=== PATIENT | female | born 1945 | race Caucasian/White ===

== ENCOUNTER → 2016-11-26 | Outpatient (CLI) | payer MEDICARE, OTHER ==
[~2016-11-26] MED LIST: ALPRAZOLAM0.5 MG PO; ASPIR 8181 MG PO; B COMPLEX1 EACH PO; CLOPIDOGREL75 MG PO; CRESTOR40 MG PO; DIOVAN 80 MG TA80 MG PO; ELIQUIS5 MG PO; FOLBIC RF TABL1 EACH PO; IMDUR ER TAB 3030 MG PO; LEVAQUIN250 MG PO; LISINOPRIL10 MG PO; LORCET HD 10-31 EACH PO; LORTAB 5-325 M1 EACH PO; METOPROLOL TART25 MG PO; MULTAQ 400 MG400 MG PO; NEURONTIN 300300 MG PO; NITROSTAT0.4 MG SL; OMEGA 3 FISH O1 EACH PO; PLAVIX75 MG PO; PROAIR HFA8.5 GM INH; PROTONIX 40 MG40 M1 PO; SPIRIVA18 MCG INH; VISTARIL25 MG PO
== END ==
LOC: LAB 11:26
PROVIDERS: Legal Medicine
DX: I25.10 Atherosclerotic heart disease of native coronary artery without angina pectoris (principal); M06.9 Rheumatoid arthritis, unspecified
CPT/HCPCS: 36415; 80053; 80061; 86140; 86431

== ENCOUNTER → 2016-12-30 | Outpatient (CLI) | payer MEDICARE, OTHER | LOC: LAB 10:34 | PROVIDERS: Internal Medicine Nephrology | DX: N18.3 Chronic kidney disease, stage 3 (moderate) (principal); N25.81 Secondary hyperparathyroidism of renal origin; E87.6 Hypokalemia | CPT/HCPCS: 36415; 80053; 82043; 82570; 83735; 83970; 84100 ==

== ENCOUNTER → 2017-02-20 | Outpatient (CLI) | payer MEDICARE, OTHER ==
[2017-02-20 10:41] LABS: HEMOGLOBIN 12.5 gm/dl (12.3-15.3); RED BLOOD COUNT 4.03 M/UL (4.00-5.10); WHITE BLOOD COUNT 4.9 K/UL (4.5-11.0)
== END ==
LOC: LAB 10:13
PROVIDERS: Nurse Practitioner Psychiatric/Mental Health
DX: I25.10 Atherosclerotic heart disease of native coronary artery without angina pectoris (principal)
CPT/HCPCS: 36415; 80048; 80061; 85025

== ENCOUNTER 2020-09-20 23:53 | Observation (INO) | payer MEDICARE, OTHER ==
[~2020-09-20] VITALS: Ht 165.1 cm; Wt 46.8 kg
[~2020-09-20 23:53] MED LIST changes: +ALBUTEROL1.25 MG/3 INH; +CITALOPRAM HBR20 MG PO; +CRESTOR10 MG PO; -CRESTOR40 MG PO; +FLONASE 0.05% N16 GM; +FLORINEF 0.1 M0.1 MG PO; +HYDROCODON-ACE1 EAC6 PO; +K-DUR TAB 10 M10 MEQ PO; +LASIX20 MG PO; +LEXAPRO20 MG PO; +LISINOPRIL5 MG PO; +MAPAP500 MG PO; +METOPROLOL SUCC25 MG PO; +MUCINEX600 MG PO; +NEURONTIN300 MG PO; +NICODERM CQ1 EAC1 TD; +PERCOCET 5/325 T1 EA PO; +PLAQUENIL 200200 MG PO; +RANEXA1000 MG PO; +RANEXA500 MG PO; +SPIRIVA HANDIH18 MCG INH; +TOPROL XL25 MG PO
[2020-09-21 00:24] LABS: HEMOGLOBIN 9.7 gm/dl (12.3-15.3); RED BLOOD COUNT 3.19 M/UL (4.00-5.10); WHITE BLOOD COUNT 4.3 K/UL (4.5-11.0)
[2020-09-22 03:02] LABS: HEMOGLOBIN 9.9 gm/dl (12.3-15.3); RED BLOOD COUNT 3.21 M/UL (4.00-5.10); WHITE BLOOD COUNT 3.5 K/UL (4.5-11.0)
[2020-09-22] MEDS ORDERED: TOPROL XL25 MG PO (11:36)
[2020-09-22] MEDS ORDERED: LISINOPRIL2.5 MG PO (11:42)
[2020-10-02] MEDS ORDERED: LASIX20 MG PO (16:47)
[2020-10-02] MEDS ORDERED: SYMBICORT 160-1 INHA INH (22:48)
== END 2020-09-22 13:31 | disposition home or self-care (01) ==
LOC: ER1 23:53 → PROG CARE 09-21 02:00 → CDU 09-21 02:00 → PROG CARE 09-21 03:21
PROVIDERS: Family Medicine; Internal Medicine; ADMIT Family Medicine
DX: I95.2 Hypotension due to drugs (principal); I25.10 Atherosclerotic heart disease of native coronary artery without angina pectoris; I11.0 Hypertensive heart disease with heart failure; I49.5 Sick sinus syndrome; J44.9 Chronic obstructive pulmonary disease, unspecified; M06.9 Rheumatoid arthritis, unspecified; I48.0 Paroxysmal atrial fibrillation; K21.9 Gastro-esophageal reflux disease without esophagitis; Z95.1 Presence of aortocoronary bypass graft; F17.210 Nicotine dependence, cigarettes, uncomplicated; Z95.0 Presence of cardiac pacemaker; Z88.5 Allergy status to narcotic agent; Z88.2 Allergy status to sulfonamides; Z79.01 Long term (current) use of anticoagulants; Z20.828 Contact with and (suspected) exposure to other viral communicable diseases; Z79.899 Other long term (current) drug therapy
CPT/HCPCS: 36415; 71045; 72131; 73564; 80048; 80053; 82550; 82553; 83605; 83735; 83874; 83880; 84439; 84443; 84484; 85025; 85610; 93005; 94640; 99285; G0378; J7030; U0002

== ENCOUNTER → 2020-09-29 | Outpatient (CLI) | payer MEDICARE, OTHER ==
[~2020-09-29] MED LIST changes: +ALL DAY ALLERGY10 M2 PO; +ARICEPT5 MG PO; +CLINDAMYCIN HC300 MG PO; +CRESTOR 10 MG T10 MG PO; +ELIQUIS 5 MG TAB5 MG PO; +ELIQUIS2.5 MG PO; +HYDROCODON-ACE1 EAC5 PO; +ISOSORBIDE MONO30 MG PO; +LEVOFLOXACIN500 MG PO; +LISINOPRIL2.5 MG PO; +METOPROLOL SUCC50 MG PO; +POTASSIUM CHLO10 MEQ PO; +SYMBICORT 160-1 INHA INH; +TOPROL XL100 MG PO; +TYLENOL PM EX-1 EACH PO; +VENTOLIN HFA 66.7 GM INH; +VITAMIN B-121000 MCG PO; +XANAX0.5 MG PO; +ZESTRIL5 MG PO
[2020-09-29 14:27] LABS: HEMOGLOBIN 11.1 gm/dl (12.3-15.3); RED BLOOD COUNT 3.54 M/UL (4.00-5.10); WHITE BLOOD COUNT 4.5 K/UL (4.5-11.0)
== END ==
LOC: LAB 13:52
PROVIDERS: Nurse Practitioner Psychiatric/Mental Health
DX: R41.3 Other amnesia (principal)
CPT/HCPCS: 36415; 80053; 84439; 84443; 85025; 85652; 86780

== ENCOUNTER 2020-10-29 11:48 | Observation (INO) | payer MEDICARE, OTHER ==
[~2020-10-29] VITALS: Ht 165.1 cm; Wt 44.5 kg
[~2020-10-29 11:48] MED LIST changes: -ALL DAY ALLERGY10 M2 PO; -ARICEPT5 MG PO; -CLINDAMYCIN HC300 MG PO; -CRESTOR 10 MG T10 MG PO; -ELIQUIS 5 MG TAB5 MG PO; -ELIQUIS2.5 MG PO; -HYDROCODON-ACE1 EAC5 PO; -ISOSORBIDE MONO30 MG PO; -LEVOFLOXACIN500 MG PO; -METOPROLOL SUCC50 MG PO; -POTASSIUM CHLO10 MEQ PO; -TOPROL XL100 MG PO; -TYLENOL PM EX-1 EACH PO; -VENTOLIN HFA 66.7 GM INH; -VITAMIN B-121000 MCG PO; -XANAX0.5 MG PO; -ZESTRIL5 MG PO
[2020-10-29 12:28] LABS: HEMOGLOBIN 11.8 gm/dl (12.3-15.3); RED BLOOD COUNT 3.75 M/UL (4.00-5.10); WHITE BLOOD COUNT 5.2 K/UL (4.5-11.0)
[2020-10-29] MEDS ORDERED: ARICEPT5 MG PO (15:35)
[2020-10-29] MEDS ORDERED: CRESTOR 10 MG T10 MG PO (15:36)
[2020-10-29] MEDS ORDERED: TYLENOL PM EX-1 EACH PO (15:37)
[2020-10-30 01:14] LABS: RED BLOOD COUNT 3.51 M/UL (4.00-5.10)
[2020-10-30] MEDS ORDERED: POTASSIUM CHLO10 MEQ PO (15:34)
[2020-10-30] MEDS ORDERED: ZESTRIL5 MG PO (16:47)
[2020-10-30] MEDS ORDERED: TOPROL XL25 MG PO (17:11)
[2020-10-30] MEDS ORDERED: VITAMIN B-121000 MCG PO (17:16)
[2020-10-30] MEDS ORDERED: ALL DAY ALLERGY10 M2 PO (22:38)
[2020-10-31 06:20] LABS: HEMOGLOBIN 11.1 gm/dl (12.3-15.3); RED BLOOD COUNT 3.58 M/UL (4.00-5.10); WHITE BLOOD COUNT 4.4 K/UL (4.5-11.0)
[2020-11-01] MEDS ORDERED: METOPROLOL SUCC50 MG PO (10:51)
[2020-11-01] MEDS ORDERED: ELIQUIS 5 MG TAB5 MG PO (10:51)
== END 2020-11-01 11:31 | disposition home or self-care (01) ==
LOC: ER1 11:48 → MED SURG 4 15:22 → CDU 15:22 → MED SURG 4 19:11
PROVIDERS: Physician Assistant; Physician Assistant Medical; ADMIT Internal Medicine
DX: R55 Syncope and collapse (principal); I25.5 Ischemic cardiomyopathy; I49.5 Sick sinus syndrome; I25.10 Atherosclerotic heart disease of native coronary artery without angina pectoris; I11.0 Hypertensive heart disease with heart failure; I50.22 Chronic systolic (congestive) heart failure; J44.9 Chronic obstructive pulmonary disease, unspecified; I08.2 Rheumatic disorders of both aortic and tricuspid valves; E78.5 Hyperlipidemia, unspecified; K21.9 Gastro-esophageal reflux disease without esophagitis; I27.20 Pulmonary hypertension, unspecified; I48.0 Paroxysmal atrial fibrillation; M06.9 Rheumatoid arthritis, unspecified; F17.210 Nicotine dependence, cigarettes, uncomplicated; Z20.822 Contact with and (suspected) exposure to COVID-19; Z95.0 Presence of cardiac pacemaker; Z95.1 Presence of aortocoronary bypass graft; Z86.73 Personal history of transient ischemic attack (TIA), and cerebral infarction without residual deficits; Z82.49 Family history of ischemic heart disease and other diseases of the circulatory system; Z88.2 Allergy status to sulfonamides; Z88.5 Allergy status to narcotic agent; Z88.8 Allergy status to other drugs, medicaments and biological substances; Z79.82 Long term (current) use of aspirin; Z79.01 Long term (current) use of anticoagulants; Z79.899 Other long term (current) drug therapy
CPT/HCPCS: 0240U; 36415; 70450; 71045; 80048; 80053; 81001; 82550; 82553; 83605; 83735; 83874; 83880; 84484; 85025; 85027; 85610; 87040; 87086; 93005; 94640; 94664; 94760; 96365; 96366; 96374; 96376; 99285; G0378; J0696

== ENCOUNTER → 2021-01-12 | Outpatient (CLI) | payer MEDICARE, OTHER ==
[~2021-01-12] MED LIST changes: +ALL DAY ALLERGY10 M2 PO; +ARICEPT5 MG PO; +CLINDAMYCIN HC300 MG PO; +CRESTOR 10 MG T10 MG PO; +ELIQUIS 5 MG TAB5 MG PO; +ELIQUIS2.5 MG PO; +HYDROCODON-ACE1 EAC5 PO; +ISOSORBIDE MONO30 MG PO; +LEVOFLOXACIN500 MG PO; +METOPROLOL SUCC50 MG PO; +POTASSIUM CHLO10 MEQ PO; +TOPROL XL100 MG PO; +TYLENOL PM EX-1 EACH PO; +VENTOLIN HFA 66.7 GM INH; +VITAMIN B-121000 MCG PO; +XANAX0.5 MG PO; +ZESTRIL5 MG PO
[2021-01-12 12:16] LABS: HEMOGLOBIN 12.1 gm/dl (12.3-15.3); RED BLOOD COUNT 3.95 M/UL (4.00-5.10); WHITE BLOOD COUNT 5.5 K/UL (4.5-11.0)
== END ==
LOC: LAB 11:28
PROVIDERS: Internal Medicine Cardiovascular Disease
DX: I11.0 Hypertensive heart disease with heart failure (principal); I50.40 Unspecified combined systolic (congestive) and diastolic (congestive) heart failure; I25.5 Ischemic cardiomyopathy; R06.02 Shortness of breath
CPT/HCPCS: 36415; 71046; 80048; 85025

== ENCOUNTER 2021-01-16 07:23 | Inpatient (IN) | payer MEDICARE, OTHER ==
[~2021-01-16] VITALS: Ht 160 cm; Wt 50.0 kg
[~2021-01-16 07:23] MED LIST changes: -CLINDAMYCIN HC300 MG PO; -ELIQUIS2.5 MG PO; -HYDROCODON-ACE1 EAC5 PO; -ISOSORBIDE MONO30 MG PO; -LEVOFLOXACIN500 MG PO; -TOPROL XL100 MG PO; -VENTOLIN HFA 66.7 GM INH; -XANAX0.5 MG PO
[2021-01-16] MEDS ORDERED: NEURONTIN300 MG PO (08:35)
[2021-01-16] MEDS ORDERED: HYDROCODON-ACE1 EAC5 PO (08:37)
[2021-01-16] MEDS ORDERED: XANAX0.5 MG PO (08:37)
[2021-01-16 15:07] LABS: RED BLOOD COUNT 3.24 M/UL (4.00-5.10); WHITE BLOOD COUNT 10.1 K/UL (4.5-11.0)
[2021-01-17] MEDS ORDERED: TOPROL XL100 MG PO (09:51)
[2021-01-17] MEDS ORDERED: MULTAQ 400 MG400 MG PO (10:26)
[2021-01-17] MEDS ORDERED: ELIQUIS2.5 MG PO (10:27)
[2021-01-17] MEDS ORDERED: ISOSORBIDE MONO30 MG PO (10:27)
[2021-01-17] MEDS ORDERED: ZESTRIL5 MG PO (10:28)
[2021-01-17] MEDS ORDERED: VENTOLIN HFA 66.7 GM INH (18:24)
[2021-01-17] MEDS ORDERED: FLONASE 0.05% N16 GM (22:35)
[2021-01-18] MEDS ORDERED: CLINDAMYCIN HC300 MG PO (09:47)
[2021-01-18] MEDS ORDERED: LEVOFLOXACIN500 MG PO (09:47)
[2021-01-18 13:07] LABS: HEMOGLOBIN 8.9 gm/dl (12.3-15.3); RED BLOOD COUNT 2.83 M/UL (4.00-5.10)
--- NOTE | 2021-01-18 16:03 | NUR ---
PATIENT HAD PACEMAKER REMOVED FROM UPPER LEFT CHEST ON 01/16. WHEN I WENT IN TO PATIENTS ROOM I NOTICED SOME BRIGHT RED BLOOD ON HER GOWN BENEATH HER LEFT ARMPIT. I FURTHER ASSESSED PATIENT AND HER BIG DRESSING HAD A MODERATE AMOUNT OF BLOOD ON IT AND BLOOD PRESSURE WAS RUNNING ON THE LOW SIDE OF 80/50. I [address] JIMENEZ TWO TIMES AND HE WAS NOT ABLE TO ANSWER. PCU RECRUITER SPECIALIST BELINDA ASSESSED PATIENT AND CALLED THE OPEN CLAIMS REPRESENTATIVE OFFICE TO SEE IF THEY COULD LOCATE DR. JIMENEZ. DR. JIMENEZ GAVE ORDERS FOR ME TO REMOVE BIG DRESSING AND ASSESS THE AMOUNT OF BLOOD, THEN REAPPLY A NEW BIG DRESSING ON TOP OF STERILE DRESSING. I CHANGED BIG DRESSING AND FOUND THE STERILE DRESSING TO BE COMPLETELY SATURATED WITH WET, RED BLOOD. I CONTACTED DR. JIMENEZ TO LET HIM KNOW. DR. JIMENEZ GAVE ORDERS FOR ME TO REMOVE STERILE DRESSING, NOT TO REMOVE STERI STRIPS, BUT TO APPLY 4X4 WITH A TEGADERM ON TOP AND ENFORCE A BIG DRESSING WITH 4X4S ON TOP OF STERILE DRESSING. WHEN REMOVING STERILE DRESSING I FOUND THE STERI STRIPS TO BE COMPLETELY SATURATED WITH A BLOOD CLOT UNDER THEM. I THEN APPLIED WHAT DR. JIMENEZ TOLD ME TO. I LET DR. JIMENEZ KNOW AND THAT PATIENTS BLOOD PRESSURE WAS STILL RUNNING LOW AT 80/50. DR. JIMENEZ SAID TO STILL DISCHARGE PAITENT PLANNED.
== END 2021-01-18 17:02 | disposition home or self-care (01) | DRG 226 ==
LOC: CATH 07:23 → PROG CARE 14:22 → CCU 14:22 → PROG CARE 01-17 17:08
PROVIDERS: Internal Medicine Pulmonary Disease; ADMIT Internal Medicine Cardiovascular Disease
PROC: 0JH608Z Insertion of Defibrillator Generator into Chest Subcutaneous Tissue and Fascia, Open Approach (ICD-10-PCS; principal; 2021-01-16)
PROC: 02PA3MZ Removal of Cardiac Lead from Heart, Percutaneous Approach (ICD-10-PCS; principal; 2021-01-16)
PROC: 02H63KZ Insertion of Defibrillator Lead into Right Atrium, Percutaneous Approach (ICD-10-PCS; principal; 2021-01-16)
PROC: 02HK3KZ Insertion of Defibrillator Lead into Right Ventricle, Percutaneous Approach (ICD-10-PCS; principal; 2021-01-16)
PROC: 0JPT0PZ Removal of Cardiac Rhythm Related Device from Trunk Subcutaneous Tissue and Fascia, Open Approach (ICD-10-PCS; 2021-01-16)
PROC: 04HY32Z Insertion of Monitoring Device into Lower Artery, Percutaneous Approach (ICD-10-PCS; 2021-01-16)
PROC: B51N1ZZ Fluoroscopy of Left Upper Extremity Veins using Low Osmolar Contrast (ICD-10-PCS; 2021-01-16)
PROC: B24BZZ4 Ultrasonography of Heart with Aorta, Transesophageal (ICD-10-PCS; 2021-01-16)
PROC: 4A027FZ Measurement of Cardiac Rhythm, Via Natural or Artificial Opening (ICD-10-PCS; 2021-01-16)
PROC: 4A0274Z Measurement of Cardiac Electrical Activity, Via Natural or Artificial Opening (ICD-10-PCS; 2021-01-16)
PROC: 0BH17EZ Insertion of Endotracheal Airway into Trachea, Via Natural or Artificial Opening (ICD-10-PCS; 2021-01-16)
PROC: 5A1935Z Respiratory Ventilation, Less than 24 Consecutive Hours (ICD-10-PCS; 2021-01-16)
DX: I50.33 Acute on chronic diastolic (congestive) heart failure (principal); J96.01 Acute respiratory failure with hypoxia; R57.8 Other shock; I45.2 Bifascicular block; Z20.822 Contact with and (suspected) exposure to COVID-19; I25.5 Ischemic cardiomyopathy; I49.8 Other specified cardiac arrhythmias; I25.10 Atherosclerotic heart disease of native coronary artery without angina pectoris; J44.9 Chronic obstructive pulmonary disease, unspecified; F17.210 Nicotine dependence, cigarettes, uncomplicated; I48.0 Paroxysmal atrial fibrillation; I08.3 Combined rheumatic disorders of mitral, aortic and tricuspid valves; Z96.652 Presence of left artificial knee joint; K21.9 Gastro-esophageal reflux disease without esophagitis; I27.20 Pulmonary hypertension, unspecified; Z96.7 Presence of other bone and tendon implants; F32.9 Major depressive disorder, single episode, unspecified; F03.90 Unspecified dementia, unspecified severity, without behavioral disturbance, psychotic disturbance, mood disturbance, and anxiety; Z95.0 Presence of cardiac pacemaker; Z86.73 Personal history of transient ischemic attack (TIA), and cerebral infarction without residual deficits; Z79.82 Long term (current) use of aspirin; Z95.1 Presence of aortocoronary bypass graft; Z79.01 Long term (current) use of anticoagulants; Z90.710 Acquired absence of both cervix and uterus; Z90.49 Acquired absence of other specified parts of digestive tract; Z88.6 Allergy status to analgesic agent; Z88.5 Allergy status to narcotic agent; Z88.2 Allergy status to sulfonamides; Z82.49 Family history of ischemic heart disease and other diseases of the circulatory system
CPT/HCPCS: ECHO; 31500; 33233; 33249; 36415; 36600; 71045; 80048; 80053; 82803; 84439; 84443; 85025; 85027; 92950; 93005; 93306; 94002; 94003; 94664; 94760; 99152; 99153; C1721; C1769; C1777; C1898; J0330; J0360; J1265; J1644; J1650; J2250; J2704; J3010; J3370; J7030; J7040; J7050; J7070; Q9965

== ENCOUNTER 2021-07-18 12:22 | Emergency (ER) | payer MEDICARE, OTHER ==
[~2021-07-18 12:22] MED LIST changes: +CLINDAMYCIN HC300 MG PO; +ELIQUIS2.5 MG PO; +HYDROCODON-ACE1 EAC5 PO; +ISOSORBIDE MONO30 MG PO; +LEVOFLOXACIN500 MG PO; +TOPROL XL100 MG PO; +VENTOLIN HFA 66.7 GM INH; +XANAX0.5 MG PO
[2021-07-18 14:01] LABS: HEMOGLOBIN 11.8 gm/dl (12.3-15.3); RED BLOOD COUNT 3.7 M/UL (4.00-5.10); WHITE BLOOD COUNT 8.1 K/UL (4.5-11.0)
[2021-07-18] MEDS ORDERED: OMNICEF 300 MG300 MG PO (15:25)
== END 2021-07-18 16:35 | disposition home or self-care (01) ==
LOC: ER1 12:22
PROVIDERS: Emergency Medicine
DX: N39.0 Urinary tract infection, site not specified (principal); I71.9 Aortic aneurysm of unspecified site, without rupture; D64.9 Anemia, unspecified; F17.200 Nicotine dependence, unspecified, uncomplicated; I25.10 Atherosclerotic heart disease of native coronary artery without angina pectoris; I10 Essential (primary) hypertension; I48.91 Unspecified atrial fibrillation; Z79.01 Long term (current) use of anticoagulants
CPT/HCPCS: 80053; 81001; 83690; 85025; 87040; 87086; 96374; 96375; 99284; J0696; J1170; J2405

== ENCOUNTER 2021-07-20 17:45 | Emergency (ER) | payer MEDICARE, OTHER ==
[~2021-07-20 17:45] MED LIST changes: +OMNICEF 300 MG300 MG PO
[2021-07-20 18:47] LABS: WHITE BLOOD COUNT 6.1 K/UL (4.5-11.0)
[2021-07-20 18:57] LABS: RED BLOOD COUNT 3.08 M/UL (4.00-5.10)
[2021-07-21 14:31] LABS: HEMOGLOBIN 9.3 gm/dl (12.3-15.3); RED BLOOD COUNT 2.88 M/UL (4.00-5.10); WHITE BLOOD COUNT 5.6 K/UL (4.5-11.0)
== END 2021-07-21 14:35 | disposition short-term general hospital (02) ==
LOC: ER1 17:45
PROVIDERS: Physician Assistant; Student in an Organized Health Care Education/Training Program
DX: I71.4 Abdominal aortic aneurysm, without rupture (principal); I25.2 Old myocardial infarction; E78.5 Hyperlipidemia, unspecified; F17.210 Nicotine dependence, cigarettes, uncomplicated; J44.9 Chronic obstructive pulmonary disease, unspecified; Z95.5 Presence of coronary angioplasty implant and graft; Z88.2 Allergy status to sulfonamides; Z88.6 Allergy status to analgesic agent; Z88.8 Allergy status to other drugs, medicaments and biological substances; Z20.822 Contact with and (suspected) exposure to COVID-19
CPT/HCPCS: 71275; 74175; 80053; 81001; 82962; 83690; 84484; 85025; 85610; 86850; 86900; 86901; 86920; 87086; 93005; 93925; 96374; 96375; 99285; J2405; J7030; Q9967; U0002

== ENCOUNTER 2021-07-28 15:15 | Emergency (ER) | payer MEDICARE, OTHER ==
[2021-07-28 16:18] LABS: RED BLOOD COUNT 1.9 M/UL (4.00-5.10); WHITE BLOOD COUNT 6.5 K/UL (4.5-11.0)
[2021-07-28 16:31] LABS: HEMOGLOBIN 6.2 gm/dl (12.3-15.3)
== END 2021-07-28 23:00 | disposition short-term general hospital (02) ==
LOC: ER1 15:15
PROVIDERS: Emergency Medicine
DX: K91.840 Postprocedural hemorrhage of a digestive system organ or structure following a digestive system procedure (principal); I73.9 Peripheral vascular disease, unspecified; D64.9 Anemia, unspecified; E78.5 Hyperlipidemia, unspecified; I11.9 Hypertensive heart disease without heart failure; Z20.822 Contact with and (suspected) exposure to COVID-19; Z79.899 Other long term (current) drug therapy
CPT/HCPCS: 36430; 80053; 81001; 82272; 83605; 83690; 85025; 85610; 85730; 86850; 86900; 86901; 86920; 96374; 96375; 96376; 99285; J1170; J2405; P9016; Q9967; U0002

== ENCOUNTER 2021-08-10 15:43 | Emergency (ER) | payer MEDICARE, OTHER | END 2021-08-10 22:30 | disposition home or self-care (01) | LOC: ER1 15:43 | DX: I97.638 Postprocedural hematoma of a circulatory system organ or structure following other circulatory system procedure (principal); I82.412 Acute embolism and thrombosis of left femoral vein; I11.0 Hypertensive heart disease with heart failure; I50.9 Heart failure, unspecified; E78.5 Hyperlipidemia, unspecified; F17.200 Nicotine dependence, unspecified, uncomplicated; Z86.73 Personal history of transient ischemic attack (TIA), and cerebral infarction without residual deficits; I48.91 Unspecified atrial fibrillation; J44.9 Chronic obstructive pulmonary disease, unspecified; Z95.0 Presence of cardiac pacemaker; Z79.01 Long term (current) use of anticoagulants; Z88.5 Allergy status to narcotic agent; Z88.2 Allergy status to sulfonamides; Z88.8 Allergy status to other drugs, medicaments and biological substances | CPT/HCPCS: 12001; 93926; 93971; 99283 ==